=== PATIENT | female | born 1955 | race African-American/Black ===

== ENCOUNTER 2018-02-23 21:57 | Emergency (ER) | payer MEDICARE, SELFPAY ==
[~2018-02-23] VITALS: Ht 157.5 cm; Wt 81.8 kg
[2018-02-23] MEDS ORDERED: ZONI100C2 PO (22:13)
[2018-02-23 23:16] LABS: BASO # 0.1 10^3/uL (0.0-0.2); BASO % 0.6 % (0.0-1.0); EOS # 0.1 10^3/uL (0.0-0.50); EOS % 1.6 % (0.0-3.0); HEMOGLOBIN 11.5 g/dl (12.0-15.5); LYMPH # 2.6 10^3/uL (1.5-4.5); LYMPH % 32.6 % (24.0-44.0); MEAN CORPUSCULAR HEMOGLOBIN 24.4 pg (27.0-33.0); MEAN CORPUSCULAR HGB CONC 30.3 g/dl (32.0-36.5); MEAN CORPUSCULAR VOLUME 80.7 fl (80.0-96.0); MONO # 0.7 10^3/uL (0.0-0.8); MONO % 8.5 % (0.0-5.0); NEUTROPHILS # 4.5 10^3/uL (1.8-7.7); NEUTROPHILS % 56.6 % (36.0-66.0); PLATELET COUNT, AUTOMATED 380 10^3/uL (150-450); RED BLOOD COUNT 4.71 10^6/uL (4.00-5.40)
[2018-02-23 23:42] LABS: AMPHETAMINES LEVEL URINE NEGATIVE (NEGATIVE); BARBITURATES URINE NEGATIVE (NEGATIVE); BENZODIAZEPINES URINE NEGATIVE (NEGATIVE); CANNABINOIDS URINE POSITIVE (NEGATIVE); COCAINE METABOLITE URINE NEGATIVE (NEGATIVE); METHADONE URINE NEGATIVE (NEGATIVE); OPIATES URINE NEGATIVE (NEGATIVE); PHENCYCLIDINE URINE NEGATIVE (NEGATIVE)
[2018-02-23 23:44] LABS: ALBUMIN 3.8 GM/DL (3.2-5.2); BILIRUBIN,DIRECT 0.1 MG/DL (0.0-0.2); BILIRUBIN,TOTAL 0.5 MG/DL (0.2-1.0); CALCIUM LEVEL 9.1 MG/DL (8.8-10.2); CREATININE FOR GFR 1.12 MG/DL (0.55-1.30); GLOMERULAR FILTRATION RATE 52.8 (>45); MAGNESIUM LEVEL 2.3 MG/DL (1.8-2.4); PHOSPHORUS LEVEL 4.4 MG/DL (2.5-4.9); POTASSIUM SERUM 4.3 MEQ/L (3.5-5.1); TOTAL PROTEIN 7.5 GM/DL (6.4-8.2)
[2018-02-24] MEDS ORDERED: levETIRAcetam INJection 1,000 MG in D5W 100 ML IV ONE ×2
[2018-02-24 00:12] VITALS: BP 178/86
[2018-02-24] MEDS ORDERED: KEPP1TAB PO (00:16)
--- NOTE | 2018-02-24 07:38 | ECGEPIP ---
Stationary ECG Study [facility] - ED Test Date: 2018-02-23 Pat Name: KAYLYN CROCKETT Department: Room: - Gender: F [employer]: [place] : 1955 Requested By: DEEPA Moon Order Number: [id number] Reading MD: Avinash Cheng Measurements Intervals Phillips Rate: 59 P: 59 [place]: 133 QRS: 56 QRSD: 82 T: 53 QT: 430 QTc: 427 Interpretive Statements SINUS BRADYCARDIA NO PRIORS FOR COMPARISON Electronically Signed On 02-24-2018 7:38:03 EST by Avinash Cheng
--- NOTE | 2018-02-24 08:07 | REP ---
Clinical: Seizure . Comparison: None . Technique: PA and lateral. Findings: The mediastinum and cardiac silhouette are normal. The lung red are clear and without acute consolidation, effusion, or pneumothorax. The skeletal structures are intact and normal. Impression: 1. No acute cardiopulmonary process. Electronically Signed by Praveen Contreras MD 02/24/2018 07:58 A
== END 2018-02-24 00:47 | disposition home or self-care (01) ==
LOC: M ED 21:57 → EDBD 21:57 → M ED 02-24 00:47
DX: G40.909 Epilepsy, unspecified, not intractable, without status epilepticus (principal); F17.210 Nicotine dependence, cigarettes, uncomplicated
CPT/HCPCS: 71046; 80048; 80076; 80307; 81001; 83735; 84100; 85025; 93005; 94760; 96365; 99284; J1953